=== PATIENT | female | born 1955 | race Hispanic/Latino ===

== ENCOUNTER 2019-02-20 11:35 | Emergency (ER) | payer OTHER ==
[~2019-02-20] VITALS: Ht 149.9 cm; Wt 61.2 kg
[~2019-02-20 11:35] MED LIST: LANTUS; LOSARTAN POTASSIUM; METFORMIN HCL500 M1 PO; NOVOLOG; SIMVASTATIN; TRILIPIX135 MG PO; VICTOZA
--- NOTE | 2019-02-20 12:43 | Diagnostic Imaging Report ---
CT BRAIN WO HISTORY: Numbness to left face, dizziness COMPARISON: None. TECHNIQUE: Noncontrast axial scans were obtained from skull base to the vertex. Coronal and sagittal reconstructions obtained from the axial data. One or more of the following dose reduction techniques were used: Automated exposure control, adjustment of the mA and/or kV according to patient size, and/or utilization of iterative reconstruction technique. DISCUSSION: Scalp/Skull: Unremarkable. Brain sulci: Appropriate for patient's age. Ventricles: Normal in size and configuration. No hydrocephalus. Extra-axial spaces: No masses or fluid collections. Mild carotid siphon calcifications. Parenchyma: Mild periventricular white matter hypodensities are likely chronic microvascular ischemic changes. Otherwise, no mass, hemorrhage, or large vascular territory acute infarct. Dural sinuses: No abnormal densities. Sellar/Suprasellar region: Intact. Skull base: Intact. Incidental findings: None. IMPRESSION: 1. No acute intracranial abnormalities. 2. Mild supratentorial chronic microvascular ischemic change. Signed by: Dr. Ehsan Kim M.D. on 02/20/2019 12:40 PM
--- NOTE | 2019-02-20 12:44 | Diagnostic Imaging Report ---
EXAMINATION: CHEST 2 VIEWS INDICATION: Dizziness, pain COMPARISON: None FINDINGS: LINES/TUBES:None LUNGS:The lungs are well-inflated. There is perihilar fullness and indistinctness of the pulmonary vasculature. No focal consolidation. PLEURA:No pleural effusion or pneumothorax. MEDIASTINUM:The cardiomediastinal silhouette appears normal in size and shape. BONES/SOFT TISSUES:No acute osseous injury. ABDOMEN:No free air under the diaphragm. IMPRESSION: Mild pulmonary interstitial edema. No focal pneumonia. Signed by: Christian Larsen MD on 02/20/2019 12:41 PM
[2019-02-20 13:15] LABS: BASOPHILS % 0.5 % (0.0-1.0); EOSINOPHILS # (AUTO) 0.1 (0.0-0.4); EOSINOPHILS % 1.2 % (0.0-6.0); HEMATOCRIT 36.9 % (34.2-44.1); HEMOGLOBIN 11.8 g/dL (12.0-16.0); LYMPHOCYTES % 26.3 % (18.0-39.1); MEAN CORPUSCULAR HEMOGLOBIN 28.6 pg (28-32); MEAN CORPUSCULAR VOLUME 89.6 fL (81-99); MONOCYTES # (AUTO) 0.4 (0.2-0.8); NEUTROPHILS % 66.7 % (38.7-80.0); PLATELET COUNT 365 x10e3/uL (140-360); RED BLOOD COUNT 4.12 x10e6/uL (3.6-5.1); RED CELL DISTRIBUTION WIDTH 12.9 % (11.7-14.4)
[2019-02-20 13:28] LABS: INR 0.85; PROTHROMBIN TIME 12.1 seconds (11.9-14.5)
[2019-02-20 13:29] LABS: PARTIAL THROMBOPLASTIN TIME 26.9 seconds (23.8-35.5)
[2019-02-20 13:36] LABS: ALANINE AMINOTRANSFERASE 16 IU/L (0-55); ALBUMIN/GLOBULIN RATIO 1.1 (0.8-2.0); ALKALINE PHOSPHATASE 87 IU/L (40-150); ANION GAP 16.8 mmol/L (8-16); BLOOD UREA NITROGEN 22 mg/dL (7-26); BUN/CREATININE RATIO 24 (6-25); CALCIUM 9.4 mg/dL (8.4-10.2); CARBON DIOXIDE 22 mmol/L (22-29); CHLORIDE 101 mmol/L (98-107); CREATINE KINASE 67 IU/L (29-168); CREATININE, SERUM 0.92 mg/dL (0.57-1.11); EST GLOMERULAR FILTRATION RATE > 60 ML/MIN (60-); GLUCOSE 139 mg/dL (74-118); POTASSIUM 3.8 mmol/L (3.5-5.1); SODIUM 136 mmol/L (136-145)
[2019-02-20 13:54] LABS: BILIRUBIN,URINE NEGATIVE (NEGATIVE); CLARITY,URINE CLEAR (CLEAR); COLOR,URINE YELLOW (YELLOW); KETONES,URINE NEGATIVE (NEGATIVE); LEUKOCYTE ESTERASE ,URINE NEGATIVE (NEGATIVE); NITRITE,URINE NEGATIVE (NEGATIVE); PROTEIN,URINE DIPSTICK NEGATIVE (NEGATIVE); URINE UROBILINOGEN 0.2 mg/dL (0.2 - 1)
[2019-02-20] MEDS ORDERED: KETOROLAC TROMETHAMINE 30 MG/ML VIAL IV STA (15:31)
[2019-02-20] MEDS ORDERED: DIAZEPAM INJ 5 MG/ML 2 ML IV ONE (15:45)
[2019-02-20] MEDS ORDERED: DIAZEPAM 5 MG TAB PO ONE (16:00)
== END 2019-02-20 16:20 | disposition home or self-care (01) ==
LOC: ER 11:35
DX: M54.2 Cervicalgia (principal); M54.12 Radiculopathy, cervical region; R20.0 Anesthesia of skin; R42 Dizziness and giddiness; R51 Headache
CPT/HCPCS: 36415; 70450; 71046; 80053; 81001; 82550; 82553; 83735; 84484; 85025; 85610; 85730; 93005; 93880; 99284; J1885

== ENCOUNTER → 2021-01-22 | Outpatient (CLI) | payer MEDICARE | LOC: US 10:33 | PROVIDERS: ATTEND Internal Medicine | DX: E04.2 Nontoxic multinodular goiter (principal) | CPT/HCPCS: 76536 ==

== ENCOUNTER → 2021-11-24 | Outpatient (CLI) | payer MEDICARE | LOC: US 10:37 | PROVIDERS: ATTEND Internal Medicine | DX: E04.2 Nontoxic multinodular goiter (principal) | CPT/HCPCS: 76536 ==

== ENCOUNTER 2024-03-03 13:00 | Outpatient (RCR) | payer MEDICARE ==
[~2024-03-03 13:00] MED LIST changes: +ACTOS30 MG PO; +ALENDRONATE SOD70 MG PO; +ASPIRIN81 MG PO; +LOPID600 MG PO; +LOSARTAN POTASS25 MG PO; +REPATHA SU140 MG/1 M SQ; +SYNJARDY XR 121 EACH PO; +ZETIA10 MG PO
== END 2024-03-06 ==
LOC: PT 13:00
PROVIDERS: ATTEND Physician Assistant
DX: Z47.1 Aftercare following joint replacement surgery (principal); Z96.652 Presence of left artificial knee joint; M62.81 Muscle weakness (generalized); M25.562 Pain in left knee; M25.662 Stiffness of left knee, not elsewhere classified; R26.89 Other abnormalities of gait and mobility

== ENCOUNTER 2024-03-08 11:21 | Outpatient (RCR) | payer MEDICARE | END 2024-04-06 | LOC: PT 11:21 | PROVIDERS: ATTEND Physician Assistant | DX: Z47.1 Aftercare following joint replacement surgery (principal); Z96.652 Presence of left artificial knee joint; M62.81 Muscle weakness (generalized); M25.562 Pain in left knee; M25.662 Stiffness of left knee, not elsewhere classified; R26.89 Other abnormalities of gait and mobility ==